=== PATIENT | male | born 1970 | race Caucasian/White ===

== ENCOUNTER 2020-05-25 19:43 | Emergency (ER) | payer OTHER ==
[~2020-05-25] VITALS: Ht 172.7 cm; Wt 113.4 kg
[2020-05-25] MEDS ORDERED: ASA81BEC PO (19:54)
[2020-05-25] MEDS ORDERED: ZINC SULFATE220 MG PO (19:54)
[2020-05-25 20:16] LABS: URINE BILIRUBIN NEGATIVE (Negative); URINE BLOOD NEGATIVE (Negative); URINE CLARITY CLEAR; URINE COLOR YELLOW; URINE GLUCOSE-RANDOM NEGATIVE (Negative); URINE KETONES NEGATIVE (Negative); URINE LEUKOCYTES-REFLEX NEGATIVE (Negative); URINE NITRITE-REFLEX NEGATIVE (Negative); URINE PROTEIN NEGATIVE (Negative); URINE SPECIFIC GRAVITY 1.015 (1.005-1.030); URINE UROBILINOGEN 0.2 E.U./dl (0.2-1.0)
[2020-05-25 20:23] LABS: HEMATOCRIT 46.3 % (42.0-52.0); HEMOGLOBIN 15.7 gm/dL (14.0-18.0); MCH 30.3 pg (26.0-34.0); MCHC 33.9 g/dL (28.0-37.0); MCV 89.5 fL (80.0-100.0); MPV 8.8 fl. (7.2-11.1); NUCLEATED RBCS 0 /100WBC; PLATELET COUNT* 222 thou/uL (150-400); RBC 5.17 mil/uL (4.50-6.00); RDW-CV 13.3 % (10.5-14.5); WBC 14.1 thou/uL (4.0-11.0)
[2020-05-25 20:37] LABS: CALCIUM 8.3 mg/dL (8.5-10.1); CREATININE 1.2 mg/dL (0.6-1.3); POTASSIUM 3.6 mmol/L (3.5-5.1)
[2020-05-25 20:42] LABS: ALBUMIN 3.4 g/dL (3.4-5.0); TOTAL BILIRUBIN 1.1 mg/dL (<0.1-1.0); TOTAL PROTEIN 6.7 g/dL (6.4-8.2)
[2020-05-25 21:18] LABS: ABSOLUTE NEUTROPHILS 13.1 thou/uL (1.6-8.1); PLATELET ESTIMATE ADEQUATE
[2020-05-25 21:19] LABS: ABSOLUTE LYMPHOCYTES 0.7 thou/uL (0.8-5.3); ABSOLUTE MONOCYTES 0.3 thou/uL (0.0-1.2)
[2020-05-25 21:45] VITALS: BP 144/78
--- NOTE | 2020-05-28 10:03 | EKG ---
[place] [address] ELECTROCARDIOGRAM REPORT Name: EDINSON MORENO Room: [facility]#: [id number] Admission: 05/25/20 Attend Phys: Discharge: 05/25/20 Date of : 66 Date of Service: 05/25/201957 Report #: [id number] THIS REPORT FOR: //name// [facility] ED Test Date: 2020-05-25 Test Time: 19:58:21 Pat Name: EDINSON MORENO Department: Room: Gender: [employer] Officer: [employer] [employer] [facility] : 1970 Requested By: Jackelyn Tierney Order Number: [id number] Naresh MD: Ap Moss Measurements Intervals [place] Rate: 70 P: 23 [place]: 172 QRS: 7 QRSD: 100 T: 52 QT: 388 QTc: 419 Interpretive Statements Sinus rhythm ST elev, probable normal early repol pattern No previous ECG available for comparison Electronically Signed On 05-28-2020 10:02:57 CDT by Ap Moss [email or web address] <ELECTRONICALLY SIGNED> By: Ap Moss MD, [facility] 05/28/20 [facility] 57 57 Ap Moss MD, FACC /EPI
== END 2020-05-25 21:45 | disposition left against medical advice (07) ==
LOC: M.ERS 19:43
PROVIDERS: Emergency Medicine
DX: R10.13 Epigastric pain (principal); R10.11 Right upper quadrant pain; R10.12 Left upper quadrant pain